=== PATIENT | female | born 1965 | race Caucasian/White ===

== ENCOUNTER 2017-11-22 11:03 | Emergency (ER) | payer OTHER ==
[~2017-11-22] VITALS: Ht 172.7 cm; Wt 102.1 kg
[2017-11-22] MEDS ORDERED: CYMBALTA60 MG PO (11:17)
[2017-11-22] MEDS ORDERED: PRINIVIL20 MG PO (11:18)
[2017-11-22] MEDS ORDERED: SYNTHROID100 MCG PO (11:18)
[2017-11-22] MEDS ORDERED: XARELTO15 MG PO (11:18)
[2018-02-14] MEDS ORDERED: COMPAZINE10 MG PO (11:44)
[2018-02-14] MEDS ORDERED: PHENERGAN25 M1 RECTAL (11:44)
[2018-06-10] MEDS ORDERED: BENTYL 10 MG CA10 MG PO (15:43)
[2018-06-10] MEDS ORDERED: MACROBID 100 M100 M2 PO (17:08)
[2018-06-10] MEDS ORDERED: PROMETHAZINE HC25 M1 PO (17:08)
[2018-06-10] MEDS ORDERED: BENTYL 20 MG TA20 M1 PO (17:08)
== END 2017-11-22 12:39 | disposition home or self-care (01) ==
LOC: ER 11:03
DX: G43.909 Migraine, unspecified, not intractable, without status migrainosus (principal); I10 Essential (primary) hypertension; E03.9 Hypothyroidism, unspecified

== ENCOUNTER 2017-11-29 07:58 | Emergency (ER) | payer OTHER ==
[~2017-11-29] VITALS: Ht 172.7 cm; Wt 99.8 kg
[~2017-11-29 07:58] MED LIST: CYMBALTA60 MG PO; PRINIVIL20 MG PO; SYNTHROID100 MCG PO; XARELTO15 MG PO
[2017-11-29 09:42] LABS: ABSOLUTE NEUTROPHILS 5.4 thou/uL (1.4-8.2); HEMATOCRIT 38.6 % (37.0-47.0); HEMOGLOBIN 13.1 gm/dL (12.0-15.0); LYMPHOCYTES 23.5 % (24.0-44.0); MCH 29.4 pg (26.0-34.0); MCHC 34.1 g/dL (28.0-37.0); MCV 86.3 fL (80.0-100.0); PLATELET COUNT 274 thou/uL (150-400); POLYS 68.5 % (36.0-66.0); RBC 4.47 mil/uL (4.20-5.00); RDW 13.8 % (10.5-14.5); WBC 7.8 thou/uL (4.0-11.0)
[2017-11-29 09:44] LABS: ALBUMIN 3.3 g/dL (3.4-5.0); CREATININE 0.7 mg/dL (0.6-1.0); POTASSIUM 4.1 mmol/L (3.5-5.1); TOTAL BILIRUBIN 0.2 mg/dL (<0.1-1.0); TOTAL PROTEIN 7.4 g/dL (6.4-8.2)
[2017-11-29] MEDS ORDERED: OXYCODONE HCL 55 MG PO (10:47)
[2017-11-29] MEDS ORDERED: PREDNISONE 20 M20 MG PO (10:47)
[2018-02-14] MEDS ORDERED: COMPAZINE10 MG PO (11:44)
[2018-02-14] MEDS ORDERED: PHENERGAN25 M1 RECTAL (11:44)
[2018-06-10] MEDS ORDERED: BENTYL 10 MG CA10 MG PO (15:43)
[2018-06-10] MEDS ORDERED: MACROBID 100 M100 M2 PO (17:08)
[2018-06-10] MEDS ORDERED: PROMETHAZINE HC25 M1 PO (17:08)
[2018-06-10] MEDS ORDERED: BENTYL 20 MG TA20 M1 PO (17:08)
== END 2017-11-29 11:06 | disposition home or self-care (01) ==
LOC: ER 07:58
PROVIDERS: Emergency Medicine
DX: M32.9 Systemic lupus erythematosus, unspecified (principal); I10 Essential (primary) hypertension; E03.9 Hypothyroidism, unspecified

== ENCOUNTER 2017-12-01 14:42 | Emergency (ER) | payer OTHER ==
[~2017-12-01] VITALS: Ht 172.7 cm; Wt 99.8 kg
[~2017-12-01 14:42] MED LIST changes: +OXYCODONE HCL 55 MG PO; +PREDNISONE 20 M20 MG PO
[2017-12-01] MEDS ORDERED: OXYCODONE HCL 55 MG PO ×2 (15:35→15:36)
[2018-02-14] MEDS ORDERED: COMPAZINE10 MG PO (11:44)
[2018-02-14] MEDS ORDERED: PHENERGAN25 M1 RECTAL (11:44)
[2018-06-10] MEDS ORDERED: BENTYL 10 MG CA10 MG PO (15:43)
[2018-06-10] MEDS ORDERED: PROMETHAZINE HC25 M1 PO (17:08)
[2018-06-10] MEDS ORDERED: BENTYL 20 MG TA20 M1 PO (17:08)
[2018-06-10] MEDS ORDERED: MACROBID 100 M100 M2 PO (17:08)
== END 2017-12-01 16:46 | disposition home or self-care (01) ==
LOC: ER 14:42
DX: M32.9 Systemic lupus erythematosus, unspecified (principal); I10 Essential (primary) hypertension; E03.9 Hypothyroidism, unspecified

== ENCOUNTER 2017-12-29 08:40 | Emergency (ER) | payer OTHER ==
[~2017-12-29] VITALS: Ht 172.7 cm; Wt 106.6 kg
[2017-12-29 09:18] LABS: ABSOLUTE NEUTROPHILS 4.6 thou/uL (1.4-8.2); BASOPHILS 0.5 % (0.0-2.0); EOSINOPHILS 2.1 % (0.0-3.0); HEMATOCRIT 40.9 % (37.0-47.0); HEMOGLOBIN 13.8 gm/dL (12.0-15.0); LYMPHOCYTES 28.3 % (24.0-44.0); MCH 29.4 pg (26.0-34.0); MCHC 33.8 g/dL (28.0-37.0); MCV 86.9 fL (80.0-100.0); MONOCYTES 5.3 % (1.0-8.0); PLATELET COUNT 283 thou/uL (150-400); POLYS 63.8 % (36.0-66.0); RBC 4.71 mil/uL (4.20-5.00); RDW 13.4 % (10.5-14.5); WBC 7.2 thou/uL (4.0-11.0)
[2017-12-29 09:26] LABS: CALCIUM 9.5 mg/dL (8.5-10.1); CREATININE 0.8 mg/dL (0.6-1.0); POTASSIUM 4.2 mmol/L (3.5-5.1)
[2017-12-29 09:32] LABS: ALBUMIN 3.7 g/dL (3.4-5.0); APTT 25.7 Seconds (24.5-32.8); PROTIME 9.6 Seconds (9.3-11.4); TOTAL BILIRUBIN 0.2 mg/dL (<0.1-1.0); TOTAL PROTEIN 8.3 g/dL (6.4-8.2)
[2017-12-29 10:13] LABS: URINE BILIRUBIN NEGATIVE (Negative); URINE BLOOD NEGATIVE (Negative); URINE CLARITY CLEAR; URINE COLOR YELLOW; URINE GLUCOSE-RANDOM* NEGATIVE (Negative); URINE KETONES NEGATIVE (Negative); URINE LEUKOCYTES-REFLEX NEGATIVE (Negative); URINE NITRITE-REFLEX NEGATIVE (Negative); URINE PROTEIN (DIPSTICK) NEGATIVE (Negative); URINE SPECIFIC GRAVITY 1.025 (1.005-1.035); URINE UROBILINOGEN 0.2 E.U./dl (0.2-1.0)
[2017-12-29] MEDS ORDERED: TRAMADOL 50 MG50 MG PO (10:25)
[2018-02-14] MEDS ORDERED: PHENERGAN25 M1 RECTAL (11:44)
[2018-02-14] MEDS ORDERED: COMPAZINE10 MG PO (11:44)
[2018-06-10] MEDS ORDERED: BENTYL 10 MG CA10 MG PO (15:43)
[2018-06-10] MEDS ORDERED: MACROBID 100 M100 M2 PO (17:08)
[2018-06-10] MEDS ORDERED: BENTYL 20 MG TA20 M1 PO (17:08)
[2018-06-10] MEDS ORDERED: PROMETHAZINE HC25 M1 PO (17:08)
== END 2017-12-29 10:45 | disposition home or self-care (01) ==
LOC: ER 08:40
PROVIDERS: Emergency Medicine
DX: R10.30 Lower abdominal pain, unspecified (principal); I10 Essential (primary) hypertension; E03.9 Hypothyroidism, unspecified

== ENCOUNTER 2018-01-10 09:19 | Emergency (ER) | payer OTHER ==
[~2018-01-10] VITALS: Ht 172.7 cm; Wt 107.0 kg
[~2018-01-10 09:19] MED LIST changes: +TRAMADOL 50 MG50 MG PO
[2018-01-10 10:37] VITALS: BP 163/112
== END 2018-01-10 10:38 | disposition home or self-care (01) ==
LOC: ER 09:19
DX: G89.29 Other chronic pain (principal); J02.9 Acute pharyngitis, unspecified; I10 Essential (primary) hypertension; E03.9 Hypothyroidism, unspecified

== ENCOUNTER → 2018-03-06 | Outpatient (CLI) | payer OTHER ==
[~2018-03-06] MED LIST changes: +COMPAZINE10 MG PO; +PHENERGAN25 M1 RECTAL
== END ==
LOC: RAD 10:51
DX: Z12.31 Encounter for screening mammogram for malignant neoplasm of breast (principal)

== ENCOUNTER 2018-07-31 15:47 | Emergency (ER) | payer OTHER ==
[~2018-07-31] VITALS: Ht 172.7 cm; Wt 108.9 kg
[~2018-07-31 15:47] MED LIST changes: +BENTYL 10 MG CA10 MG PO; +BENTYL 20 MG TA20 M1 PO; +MACROBID 100 M100 M2 PO; +PROMETHAZINE HC25 M1 PO
[2018-07-31 16:49] LABS: BASOPHILS 0.8 % (0.0-2.0); EOSINOPHILS 1.4 % (0.0-3.0); HEMATOCRIT 40.3 % (37.0-47.0); HEMOGLOBIN 13.7 gm/dL (12.0-15.0); LYMPHOCYTES 22.2 % (24.0-44.0); MCH 28.6 pg (26.0-34.0); MCV 84.1 fL (80.0-100.0); MONOCYTES 5.3 % (1.0-8.0); PLATELET COUNT 301 thou/uL (150-400); POLYS 70.3 % (36.0-66.0); RBC 4.79 mil/uL (4.20-5.00); RDW 15.4 % (10.5-14.5)
[2018-07-31 16:58] LABS: CALCIUM 9.2 mg/dL (8.5-10.1); CREATININE 0.8 mg/dL (0.6-1.0); POTASSIUM 3.7 mmol/L (3.5-5.1)
[2018-07-31 16:59] LABS: URINE BILIRUBIN NEGATIVE (Negative); URINE BLOOD NEGATIVE (Negative); URINE CLARITY CLEAR; URINE COLOR YELLOW; URINE GLUCOSE-RANDOM* NEGATIVE (Negative); URINE KETONES NEGATIVE (Negative); URINE LEUKOCYTES-REFLEX NEGATIVE (Negative); URINE NITRITE-REFLEX NEGATIVE (Negative); URINE PROTEIN (DIPSTICK) NEGATIVE (Negative); URINE SPECIFIC GRAVITY 1.025 (1.005-1.035); URINE UROBILINOGEN 0.2 E.U./dl (0.2-1.0)
[2018-07-31 17:04] LABS: ALBUMIN 3.7 g/dL (3.4-5.0); TOTAL BILIRUBIN 0.2 mg/dL (<0.1-1.0)
[2018-07-31] MEDS ORDERED: MOBIC7.5 MG PO (17:41)
[2018-07-31] MEDS ORDERED: NORCO 5-325 TA1 EACH PO (17:43)
[2018-07-31 18:07] VITALS: BP 157/90
== END 2018-07-31 18:08 | disposition home or self-care (01) ==
LOC: ER 15:47
PROVIDERS: Nurse Practitioner Family
DX: M32.9 Systemic lupus erythematosus, unspecified (principal); R11.2 Nausea with vomiting, unspecified; I10 Essential (primary) hypertension; E03.9 Hypothyroidism, unspecified; Z90.710 Acquired absence of both cervix and uterus; Z90.49 Acquired absence of other specified parts of digestive tract

== ENCOUNTER 2018-08-25 11:40 | Emergency (ER) | payer OTHER ==
[~2018-08-25] VITALS: Ht 172.7 cm; Wt 109.3 kg
[~2018-08-25 11:40] MED LIST changes: +MOBIC7.5 MG PO; +NORCO 5-325 TA1 EACH PO
[2018-08-25] MEDS ORDERED: TRAMADOL 50 MG50 MG PO (12:38)
== END 2018-08-25 13:31 | disposition home or self-care (01) ==
LOC: ER 11:40
DX: S93.491A Sprain of other ligament of right ankle, initial encounter (principal); S30.0XXA Contusion of lower back and pelvis, initial encounter; I10 Essential (primary) hypertension; E03.9 Hypothyroidism, unspecified; Z90.710 Acquired absence of both cervix and uterus; Z90.49 Acquired absence of other specified parts of digestive tract; W01.0XXA Fall on same level from slipping, tripping and stumbling without subsequent striking against object, initial encounter; Y92.89 Other specified places as the place of occurrence of the external cause; Y93.89 Activity, other specified; Y99.8 Other external cause status

== ENCOUNTER 2018-09-15 16:03 | Emergency (ER) | payer OTHER ==
[~2018-09-15] VITALS: Ht 172.7 cm; Wt 109.8 kg
[2018-09-15] MEDS ORDERED: BENTYL 10 MG CA10 M1 PO (16:16)
[2018-09-15] MEDS ORDERED: VITAMIN D1000 UNI1 PO (16:16)
[2018-09-15 17:04] LABS: HEMATOCRIT 39.6 % (37.0-47.0); HEMOGLOBIN 13.2 gm/dL (12.0-15.0); MCH 28.7 pg (26.0-34.0); MCHC 33.5 g/dL (28.0-37.0); MCV 85.7 fL (80.0-100.0); PLATELET COUNT 339 thou/uL (150-400); RBC 4.62 mil/uL (4.20-5.00); RDW 14.3 % (10.5-14.5)
[2018-09-15 17:06] LABS: URINE BILIRUBIN NEGATIVE (Negative); URINE BLOOD NEGATIVE (Negative); URINE CLARITY CLEAR; URINE COLOR YELLOW; URINE GLUCOSE-RANDOM* NEGATIVE (Negative); URINE KETONES NEGATIVE (Negative); URINE LEUKOCYTES-REFLEX NEGATIVE (Negative); URINE NITRITE-REFLEX NEGATIVE (Negative); URINE PROTEIN (DIPSTICK) NEGATIVE (Negative); URINE SPECIFIC GRAVITY >= 1.030 (1.005-1.035); URINE UROBILINOGEN 0.2 E.U./dl (0.2-1.0)
[2018-09-15 17:13] LABS: CALCIUM 8.7 mg/dL (8.5-10.1); CREATININE 0.8 mg/dL (0.6-1.0); POTASSIUM 3.7 mmol/L (3.5-5.1)
[2018-09-15 17:39] LABS: ABSOLUTE NEUTROPHILS 7.4 thou/uL (1.4-8.2)
[2018-09-15] MEDS ORDERED: PREDNISONE 20 M20 MG PO (17:59)
[2018-09-15] MEDS ORDERED: NORCO 5-325 TA1 EACH PO (17:59)
[2018-09-15 18:14] VITALS: BP 152/84
== END 2018-09-15 18:15 | disposition home or self-care (01) ==
LOC: ER 16:03
PROVIDERS: Physician Assistant
DX: M79.18 Myalgia, other site (principal); D72.829 Elevated white blood cell count, unspecified; R11.10 Vomiting, unspecified; I10 Essential (primary) hypertension; E03.9 Hypothyroidism, unspecified; Z90.710 Acquired absence of both cervix and uterus; Z90.49 Acquired absence of other specified parts of digestive tract

== ENCOUNTER 2020-08-26 09:56 | Emergency (ER) | payer OTHER ==
[~2020-08-26] VITALS: Ht 172.7 cm; Wt 113.4 kg
[~2020-08-26 09:56] MED LIST changes: +BENTYL 10 MG CA10 M1 PO; +VITAMIN D1000 UNI1 PO
[2020-08-26] MEDS ORDERED: PROMETH-CODEIN 65 ML PO (11:27)
[2020-08-26] MEDS ORDERED: ONDANSETRON HCL4 M2 PO (11:27)
[2020-08-26 12:23] VITALS: BP 149/98
== END 2020-08-26 12:23 | disposition home or self-care (01) ==
LOC: ER 09:56
DX: R05 Cough (principal); M79.18 Myalgia, other site; R09.81 Nasal congestion; Z20.828 Contact with and (suspected) exposure to other viral communicable diseases; R19.7 Diarrhea, unspecified; I10 Essential (primary) hypertension; E03.9 Hypothyroidism, unspecified; Z90.710 Acquired absence of both cervix and uterus; Z90.49 Acquired absence of other specified parts of digestive tract; Z86.711 Personal history of pulmonary embolism; Z79.899 Other long term (current) drug therapy

== ENCOUNTER 2020-12-13 15:03 | Emergency (ER) | payer OTHER ==
[~2020-12-13] VITALS: Ht 172.7 cm; Wt 113.4 kg
[~2020-12-13 15:03] MED LIST changes: +ONDANSETRON HCL4 M2 PO; +PROMETH-CODEIN 65 ML PO
[2020-12-13 16:18] LABS: ABSOLUTE NEUTROPHILS 5.8 thou/uL (1.4-8.2); BASOPHILS 0.7 % (0.0-2.0); EOSINOPHILS 1.8 % (0.0-3.0); HEMATOCRIT 37.1 % (37.0-47.0); HEMOGLOBIN 12.5 gm/dL (12.0-15.0); LYMPHOCYTES 21.8 % (24.0-44.0); MCH 28.6 pg (26.0-34.0); MCHC 33.6 g/dL (28.0-37.0); MCV 85.2 fL (80.0-100.0); MONOCYTES 4.1 % (1.0-8.0); PLATELET COUNT 278 thou/uL (150-400); POLYS 71.6 % (36.0-66.0); RBC 4.36 mil/uL (4.20-5.00); RDW 14.7 % (10.5-14.5); WBC 8.1 thou/uL (4.0-11.0)
[2020-12-13 16:25] LABS: CALCIUM 8.7 mg/dL (8.5-10.1); CREATININE 0.9 mg/dL (0.6-1.0); POTASSIUM 3.4 mmol/L (3.5-5.1)
[2020-12-13 16:36] LABS: ALBUMIN 3.5 g/dL (3.4-5.0); TOTAL BILIRUBIN 0.2 mg/dL (0.2-1.0); TOTAL PROTEIN 7.4 g/dL (6.4-8.2)
[2020-12-13 17:55] LABS: URINE BILIRUBIN NEGATIVE (Negative); URINE BLOOD NEGATIVE (Negative); URINE CLARITY CLEAR; URINE COLOR YELLOW; URINE GLUCOSE-RANDOM* NEGATIVE (Negative); URINE KETONES NEGATIVE (Negative); URINE LEUKOCYTES-REFLEX NEGATIVE (Negative); URINE NITRITE-REFLEX NEGATIVE (Negative); URINE PROTEIN (DIPSTICK) NEGATIVE (Negative); URINE SPECIFIC GRAVITY 1.025 (1.005-1.035); URINE UROBILINOGEN 0.2 E.U./dl (0.2-1.0)
[2020-12-13] MEDS ORDERED: ZOLOFT25 MG PO (19:24)
[2020-12-13 19:31] VITALS: BP 122/81
== END 2020-12-13 20:39 | disposition home or self-care (01) ==
LOC: ER 15:03
PROVIDERS: Nurse Practitioner Family
DX: R19.7 Diarrhea, unspecified (principal); I10 Essential (primary) hypertension; E03.9 Hypothyroidism, unspecified; Z90.710 Acquired absence of both cervix and uterus; Z79.899 Other long term (current) drug therapy; Z20.822 Contact with and (suspected) exposure to COVID-19

== ENCOUNTER 2021-04-25 11:54 | Emergency (ER) | payer OTHER ==
[~2021-04-25] VITALS: Ht 175.3 cm; Wt 118.8 kg
[~2021-04-25 11:54] MED LIST changes: +ZOLOFT25 MG PO
[2021-04-25] MEDS ORDERED: topamax PO (12:21)
[2021-04-25 12:49] LABS: HEMATOCRIT 38.7 % (37.0-47.0); HEMOGLOBIN 12.7 gm/dL (12.0-15.0); MCH 27.7 pg (26.0-34.0); MCHC 32.8 g/dL (28.0-37.0); MCV 84.5 fL (80.0-100.0); RBC 4.58 mil/uL (4.20-5.00); RDW 14.8 % (10.5-14.5); WBC 8.6 thou/uL (4.0-11.0)
[2021-04-25 12:52] LABS: ANION GAP 12 mmol/L (7-16); BUN 17 mg/dL (7-18); CALCIUM 8.6 mg/dL (8.5-10.1); CHLORIDE 107 mmol/L (98-107); CO2 23 mmol/L (21-32); CREATININE 0.8 mg/dL (0.6-1.0); GLUCOSE 140 mg/dL (74-106); POTASSIUM 3.8 mmol/L (3.5-5.1); SODIUM 142 mmol/L (136-145)
[2021-04-25 12:59] LABS: ALBUMIN 3.5 g/dL (3.4-5.0); SGOT 22 U/L (15-37); SGPT 45 U/L (14-59); TOTAL BILIRUBIN < 0.1 mg/dL (0.2-1.0); TOTAL PROTEIN 7.6 g/dL (6.4-8.2)
[2021-04-25 14:28] LABS: URINE BILIRUBIN NEGATIVE (Negative); URINE BLOOD TRACE (Negative); URINE CLARITY CLEAR; URINE COLOR YELLOW; URINE GLUCOSE-RANDOM* NEGATIVE (Negative); URINE KETONES NEGATIVE (Negative); URINE LEUKOCYTES-REFLEX NEGATIVE (Negative); URINE NITRITE-REFLEX NEGATIVE (Negative); URINE PROTEIN (DIPSTICK) NEGATIVE (Negative); URINE SPECIFIC GRAVITY <= 1.005 (1.005-1.035); URINE UROBILINOGEN 0.2 E.U./dl (0.2-1.0)
[2021-04-25] MEDS ORDERED: ZITHROMAX500 MG PO (14:37)
[2021-04-25] MEDS ORDERED: MAGIC MOUTHWASH SWISH&SPIT (14:37)
[2021-04-25 14:51] VITALS: BP 123/68
== END 2021-04-25 14:52 | disposition home or self-care (01) ==
LOC: ER 11:54
PROVIDERS: Nurse Practitioner Family
DX: R19.7 Diarrhea, unspecified (principal); J02.9 Acute pharyngitis, unspecified; R10.30 Lower abdominal pain, unspecified; I10 Essential (primary) hypertension; Z86.711 Personal history of pulmonary embolism; E03.9 Hypothyroidism, unspecified; Z90.710 Acquired absence of both cervix and uterus

== ENCOUNTER 2021-05-23 03:58 | Emergency (ER) | payer OTHER ==
[~2021-05-23] VITALS: Ht 172.7 cm; Wt 118.8 kg
[~2021-05-23 03:58] MED LIST changes: +MAGIC MOUTHWASH SWISH&SPIT; +ZITHROMAX500 MG PO; +topamax PO
[2021-05-23 06:09] VITALS: BP 128/80
== END 2021-05-23 06:10 | disposition home or self-care (01) ==
LOC: ER 03:58
DX: J02.9 Acute pharyngitis, unspecified (principal); Z20.822 Contact with and (suspected) exposure to COVID-19; I10 Essential (primary) hypertension; E03.9 Hypothyroidism, unspecified; Z90.710 Acquired absence of both cervix and uterus; Z79.899 Other long term (current) drug therapy

== ENCOUNTER 2021-06-23 20:41 | Emergency (ER) | payer OTHER ==
[~2021-06-23] VITALS: Ht 172.7 cm; Wt 114.3 kg
[2021-06-23 20:46] VITALS: BP 125/78
[2021-06-23] MEDS ORDERED: CLARITIN10 M2 PO (21:06)
[2021-06-23] MEDS ORDERED: ZOFRAN ODT4 MG PO (21:33)
== END 2021-06-23 21:30 | disposition home or self-care (01) ==
LOC: ER 20:41
PROVIDERS: Emergency Medicine
DX: R05 Cough (principal); Z20.822 Contact with and (suspected) exposure to COVID-19; I10 Essential (primary) hypertension; E03.9 Hypothyroidism, unspecified; Z90.710 Acquired absence of both cervix and uterus; Z90.49 Acquired absence of other specified parts of digestive tract; Z79.899 Other long term (current) drug therapy